=== PATIENT | female | born 2000 | race Caucasian/White ===

== ENCOUNTER 2021-12-13 17:07 | Emergency (ER) | payer OTHER ==
[~2021-12-13] VITALS: Ht 165.1 cm; Wt 52.2 kg
[2021-12-13] MEDS ORDERED: ZITHROMAX500 MG PO (20:59)
[2021-12-13] MEDS ORDERED: TUSNEL LIQUID178 ML PO (20:59)
== END 2021-12-13 21:14 | disposition home or self-care (01) ==
LOC: ER 17:07
DX: A49.3 Mycoplasma infection, unspecified site (principal); J06.9 Acute upper respiratory infection, unspecified; R51.9 Headache, unspecified; D50.8 Other iron deficiency anemias; Z20.822 Contact with and (suspected) exposure to COVID-19